=== PATIENT | female | born 1990 | race Two or more races ===

== ENCOUNTER 2020-08-16 08:25 | Emergency (ER) | payer OTHER ==
[~2020-08-16] VITALS: Ht 167.6 cm; Wt 86.0 kg
[2020-08-16 09:28] LABS: BASOPHILS % (AUTO) 0 % (0-1); EOSINOPHILS % (AUTO) 1 % (1-7); LYMPHOCYTES % (AUTO) 14 % (22-44); MEAN CORPUSCULAR HEMOGLOBIN 29.2 pg (27.0-34.8); MEAN PLATELET VOLUME 10.3 fL (7.4-10.4); MONOCYTES % (AUTO) 6 % (2-9); NEUTROPHILS % (AUTO) 78 % (42-75); PLATELET COUNT 240 x10^3/uL (130-400); RED CELL DISTRIBUTION WIDTH 13.2 % (9.6-15.2)
[2020-08-16] MEDS ORDERED: SODIUM CHLORIDE 0.9% 1,000ML IVBOLUS ONE (09:30)
[2020-08-16] MEDS ORDERED: ONDANSETRON 2MG/ML, 2ML IVPush ONE (09:30)
[2020-08-16 09:54] LABS: ALBUMIN 3.7 g/dL (3.4-5.0); CALCIUM 8.3 mg/dL (8.5-10.1)
[2020-08-16] MEDS ORDERED: ONDANSETRON 2MG/ML, 2ML ONE (10:10)
[2020-08-16] MEDS ORDERED: MORPHINE SULFATE 4 MG/ML, 1ML ONE ×2 (10:10→11:36)
[2020-08-16 10:18] LABS: ALANINE AMINOTRANSFERASE 29 U/L (12-78); ALKALINE PHOSPHATASE 51 U/L (45-117); ANION GAP 5 mmol/L (5-15); BILIRUBIN,TOTAL 0.4 mg/dL (0.2-1.0); CHLORIDE 110 mmol/L (98-107); CREATININE 0.75 mg/dL (0.55-1.02); TOTAL PROTEIN 6.6 g/dL (6.4-8.2)
[2020-08-16] MEDS: MORPHINE SULFATE 4 MG/ML, 1ML IVPush PRN ×2 (10:21→11:40)
--- NOTE | 2020-08-16 10:25 | NUR ---
PT ABLE TO PROVIDE A URINE SAMPLE. URINE WALKED TO LAB. IV STARTED, ORDERED MEDS GIVEN AND FLUIDS STARTED. PT PLACED ON VITALS MONITORS. FRIEND AT BEDSIDE. PT IN HOSPITAL GOWN. WILL CONTINUE TO MONITOR.
--- NOTE | 2020-08-16 10:32 | NUR ---
PT GOING TO CT AT THIS TIME.
[2020-08-16] MEDS ORDERED: OMNIPAQUE 350 MG/ML, 100ML BOTTLE ONE (10:43)
[2020-08-16 10:47] LABS: MICROSCOPIC INDICATED
[2020-08-16] MEDS ORDERED: KETOROLAC 30 MG/1 ML ONE (11:36)
--- NOTE | 2020-08-16 11:41 | NUR ---
PT MEDICATED PER MAR.
[2020-08-16] MEDS ORDERED: KETOROLAC 30 MG/1 ML IVPush ONE (12:00)
[2020-08-16 12:39] VITALS: BP 93/50
== END 2020-08-16 12:41 | disposition home or self-care (01) ==
LOC: ED 12:27
DX: N83.291 Other ovarian cyst, right side (principal); R10.31 Right lower quadrant pain
CPT/HCPCS: 36415; 74177; 80053; 81001; 84703; 85025; 87086; 96361; 96374; 96375; 96376; 99285; J1885; J2270; J2405; J7030; Q9967